=== PATIENT | female | born 2000 | race Two or more races ===

== ENCOUNTER 2024-04-20 09:09 | Emergency (ER) | payer MEDICAID, SELFPAY ==
[2024-04-20] VITALS (8 sets, daily range): BP systolic 62–134; BP diastolic 39–95; PULSE 48–101; RESP 15–22; TEMP 36.7–37.1; O2SAT 97–99; BMI 36.8
--- NOTE | 2024-04-20 09:31 | PC.NURSE ---
Ashok Caceres [facility] Officer here talking with pt. and pt.'s spouse.
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
--- NOTE | 2024-04-20 10:32 | EKG_ITS ---
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
--- NOTE | 2024-04-20 10:59 | PC.NURSE ---
@6993- Dr. Duong made aware that pt was hypotensive and bradycardic around 1000 initially but VS now stable. Per Dr. Duong, since pt's VS stable at this time, no new orders.
[2024-04-20 11:11] LABS: Basophils # (Auto) 0.1 Thou/mm3 (0.0-0.2); Basophils % (Auto) 0 % (0-2.5); Eosinophils # (Auto) 0.1 Thou/mm3 (0.0-0.5); Eosinophils % (Auto) 1 % (0-10); Hematocrit 39.7 % (36.0-46.0); Hemoglobin 13.4 g/dL (12.0-16.0); Immature Granulocytes % (Auto) 1 % (0-0); Immature Granulocytes Auto 0.14 Thou/mm3 (0.00-0.00); Lymphocytes # (Auto) 2.8 Thou/mm3 (1.0-4.8); Lymphocytes % (Auto) 15 % (10-50); Mean Corpuscular HGB Conc 33.8 g/dl (31.0-37.0); Mean Corpuscular Hemoglobin 27.9 pg (25.0-35.0); Mean Corpuscular Volume 83 fL (80-100); Monocytes % (Auto) 6 % (0-12); Neutrophils # (Auto) 13.9 Thou/mm3 (1.8-7.7); Neutrophils % (Auto) 77 % (37-80); Nucleated Red Blood Cell % 0 /100 WBC (0); Platelet Count 240 Thou/mm3 (140-440); RDW Standard Deviation 37.6 fL (36.4-46.3); White Blood Count 18.1 Thou/mm3 (3.6-11.0)
[2024-04-20 11:26] LABS: Partial Thromboplastin Time 23.8 Seconds (22.0-36.0); Prothrombin Time 11.2 Seconds (9.0-12.2)
[2024-04-20 11:34] LABS: Alanine Aminotransferase 35 U/L (10-49); Albumin, Serum 4.4 gm/dL (3.5-5.0); Albumin/Globulin Ratio 1.6 (1.2-2.2); Alcohol, Blood Medical < 3.0 mg/dL (0-10.0); Alkaline Phosphatase 80 U/L (46-116); Anion Gap 7 (7-16); Aspartate Amino Transferase 25 U/L (0-34); BUN/Creatinine Ratio 25 Ratio (12-20); Bilirubin,Total 0.5 mg/dL (0.3-1.2); Blood Urea Nitrogen 15 mg/dL (9-23); Calcium 9.2 mg/dL (8.3-10.6); Calcium (Corrected) 9.2 mg/dL (8.5-10.1); Carbon Dioxide 23.1 mMol/L (20.0-31.0); Chloride 107 mMol/L (98-107); Creatinine (Component) 0.6 mg/dL (0.6-1.3); Estimated Creatinine Clearance 146.2 mL/min (>60); Globulin 2.7 gm/dL (2.3-3.5); Glucose 171 mg/dL (74-106); Osmolality,Calculated 278 (275-295); Potassium 3.2 mMol/L (3.4-5.1); Sodium 137 mMol/L (136-145); Total Protein 7.1 gm/dL (5.7-8.2); Troponin I < 0.002 ng/mL (0.0-0.045); eGFR > 60 See Note
[2024-04-20 12:01] LABS: HCG Qualitative,Urine Negative
[2024-04-20] MEDS: IBUPROFEN TAB 600 MG TABLET PO (14:09)
[2024-04-20] MEDS: ACETAMINOPHEN 325 MG TABLET 650 MG PO (14:09)
--- NOTE | 2024-04-20 14:35 | PC.NURSE ---
Tank Assembler used for pt's discharge instructions. Tank Assembler name: Sheila ID#: [id number]
== END 2024-04-20 14:42 | disposition home or self-care (01) ==
PROVIDERS: Emergency Provider Emergency Medicine
DX: S30.1XXA Contusion of abdominal wall, initial encounter (principal); S10.83XA Contusion of other specified part of neck, initial encounter; S10.81XA Abrasion of other specified part of neck, initial encounter; S19.9XXA Unspecified injury of neck, initial encounter; S29.9XXA Unspecified injury of thorax, initial encounter; V49.9XXA Car occupant (driver) (passenger) injured in unspecified traffic accident, initial encounter
CPT/HCPCS: 36415; 70450; 71045; 71260; 72125; 74177; 80053; 80320; 81025; 84484; 85025; 85610; 85730; 86850; 86900; 86901; 93005; 99285; A4649; Q9967; A9270; G0480

== ENCOUNTER 2024-12-11 13:00 | Outpatient (AMB) | payer MEDICAID, SELFPAY ==
[2024-12-11 13:31] VITALS: BP 119/79; PULSE 94; RESP 17; TEMP 36.9; O2SAT 96; BMI 41.5
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
== END 2024-12-11 13:51 | disposition home or self-care (01) ==
LOC: HODSOBC 13:00
PROVIDERS: PCP Advanced Practice Midwife; Referring Provider Advanced Practice Midwife; Supervising Provider Advanced Practice Midwife; Visit Provider Advanced Practice Midwife
DX: O09.891 Supervision of other high risk pregnancies, first trimester (principal); O21.9 Vomiting of pregnancy, unspecified; Z3A.12 12 weeks gestation of pregnancy
CPT/HCPCS: 99214; G0463

== ENCOUNTER 2025-01-08 15:15 | Outpatient (AMB) | payer MEDICAID, SELFPAY ==
[2025-01-08 15:23] VITALS: BP 121/83; PULSE 98; RESP 18; TEMP 36.8; O2SAT 97; BMI 42.0
--- NOTE | 2025-01-08 15:23 | OBCLNT_ITS ---
Vital Signs 01/08/25 15:23 Height 1.47 m Height Method Stated Weight 90.832 kg Weight Measurement Method Standing Scale BMI 42.0 BP 121/83 Blood Pressure Source Automatic Cuff Blood Pressure Location Left Upper Arm Position Sitting Respiration 18 Pulse 98 Pulse Source Monitor Temp 98.2 F Temp Source Oral Pulse Oximetry (%) 97 Oxygen Delivery Method Room Air Allergies/Home Meds Allergies & Medications Allergies iron Allergy (Verified 01/08/25 15:24) swelling Medication Reconciliation ondansetron HCl 4 mg tablet 4 mg PO Q8H PRN nausea and vomiting #30 tabs 12/11/24 [Rx Confirmed 01/08/25] vitamin-ferrous fumarate 28 mg iron-folic acid 800 mcg tablet ( Vitamins with Minerals) 1 tab PO QDAY #60 tabs 12/11/24 [Rx Confirmed 01/08/25] blood sugar diagnostic (Blood Glucose Test strips) #10 ea 01/01/25 [Rx Confirmed 01/08/25] blood sugar diagnostic (Blood Glucose Test strips) #50 ea 01/01/25 [Rx Confirmed 01/08/25] blood-glucose meter #1 ea 01/01/25 [Rx Confirmed 01/08/25] lancets #100 ea 01/01/25 [Rx Confirmed 01/08/25] lancets #100 ea 01/01/25 [Rx Confirmed 01/08/25] Intake Visit Data Collection New Patient or Established: Established Patient (seen at [facility] within 3 years) Reason for Visit:: CARE Seen by Clinical Staff ONLY (RN/MA): No Android Ios Developer Required: No Do You Feel Safe at Home: Yes Authorities Contacted: N/A PCP or OBGYN visit in last 3 months: Yes Hx Now: Yes Are you currently on any form of Control: No Pain Present Currently: No Pain Scale Used: Peñaloza-Nguyen/Numerical Pain scale:: 0 Smoking Status Smoking Status: Never smoker Questionnaires Covid-19 Vaccine Questionnaire Has patient been vacinated for Covid-19 Have you been vacinated for Covid-19: Yes PHQ-9 PHQ-2 Over the last 2 weeks, how often have you been bothered by any of the following problems? 1. Little interest or pleasure in doing things: not at all 2. Feeling down, depressed, or hopeless: not at all Total score: 0 PHQ-9 3. Trouble falling or staying asleep, or sleeping too much: Not at all 4. Feeling tired or having little energy: Not at all 5. Poor appetite or overeating: Not at all 6. Feeling bad about yourself - or that you are a failure or have let yourself or your family down: Not at all 7. Trouble concentrating on things, such as reading the newspaper or watching television: Not at all 8. Moving or speaking so slowly that other people could have noticed? - Or the opposite - being so fidgety or restless that you have been moving around a lot more than usual: not at all 9. Thoughts that you would be better off or of hurting yourself in some way: Not at all Total score: 0 Source: Developed by Drs. Damaso Faye, Kiki eSlf, Vince Byrne and colleagues, with an educational arturo from [employer]. 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: Past Medical History Past Medical History: No Hx Neurological Disorders, No Hx Breast Cancer, No Hx Cardiac Disorders, No Hx Cancer, Yes Hx Blood Disorders, Yes Hx Anemia, No Hx Gastrointestinal Disorders, No Hx Renal Disease, No Hx Diabetes Mellitus Type 1 and No Hx Diabetes Mellitus Type 2 Care OB Visit Log OB Flowsheet Initial Weight: Not Recorded Date -?-?-?-?-?-?-?-?-?-?-?-?- EGA Weight BP Alb Glu CTX Pres Fundal ht FHR Mov Dilation Station Ef facement Hx Notes Visit Note 12/11/24 -?-?-?-?-?-?-?-?-?-?-?-?- 12w 1d 90.265 kg 119/79 absent unknown 12 145 absent 24-year-old 3 para 2 here for OBI. Patient's last period September 17, 2024. This gives a due date June 2025. Patient is happy about the . Her first 2 pregnancies were normal births but she had diabetes with her last . Diet only. Denies bleeding. Denies bleeding leaking. Denies any contractions. Patient does complain of nausea and vomiting Zofran 0.4 every 8 hours I gave prescription 60. Discussed comfort measures for nausea and vomiting. Continue vitamins. I ordered an ultrasound here at [facility]. Patient is having trouble with transportation and wants to go there. OB panel and NIPT and 1 hour GTT for tomorrow at the lab and return in 4 weeks OB check 01/08/25 -?-?-?-?-?-?-?-?-?-?-?-?- 16w 1d 90.832 kg 121/83 absent unknown 15 140 active Reports slight movement. Denies cramps. Denies bleeding. Denies leaking. Patient did not hop picker her glucometer and equipment yet. Previous GDM last . Patient agrees to go to maternal- medicine appointment in [place]. Advised patient to hop picker her glucometer and supplies from the pharmacy. I discussed blood glucose monitoring 4 times a day. Discussed GDM diet. Encourage patient to walk 40 minutes a day. And I asked patient to follow-up with our educator. Kayode nettles schedule patient at Dr. Vallejo for anatomy scan. Return in 4 weeks OB check Advised patient to hop picker h er glucometer and supplies from the pharmacy. I discussed blood glucose monitoring 4 times a day. Discussed GDM diet. Encourage patient to walk 40 minutes a day. And I asked patient to follow-up with our educator. Will schedule patient at Dr. Vallejo for anatomy scan. Return in 4 weeks OB check. AFP HERNANDO Calculator Estimated Delivery Date Method Current WG Current Estimate 06/24/25 LMP (Certain) 16w 1d Notes Visit Date: 01/08/25 Last Updated by: Eleonora Corea CNM 1 hr gtt: 225, O+,abs-, rpr::nr, rub imm, hbsag-,HIV-,HC-, GC/CT-, NIPT-,, SMA/CF- GDM Visit Date: 12/11/24 Last Updated by: Eleonora Corea CNM 24 yo . lmp 09/17/24. EDC 06/24/25 Office Procedures OB Clinic LOC & Office Proc's Nursing/Assessment Patient Status: Established Patient OB Clinic Nursing Assessment: Medication Reconciliation, Update PMH in EMR and Vital Signs OB Clinic Coordination of Care: Complex Care and Chronic Disease 1-5, Consent,records obtained, informed consent, Education Simp Pt/Fam, Lab and Imaging orders, Results/Orders obtained and Staff clarify orders Special Needs: Heart tones Established Patient Charge Established Patient Point Assignment: 135 Established Patient Point Charge: EP Level 4 (120-155) Assessment & Plan Diagnosis / Problem List (1) Encounter for supervision of high risk in second trimester, antepartum: Status: Acute (2) Diet controlled White classification A1 gestational diabetes mellitus (GDM): Status: Acute Plan Discussed GDM diet discussed glucometer use and picking up that and her equipment at pharmacy. And then patient to test 4 times a day. Reviewed GDM diet and parameters with patient encouraged to walk 40 minutes a day. Schedule anatomy scan with Dr. Fernandes's office. And return in 4 weeks OB. aFP Additional Plan Follow Up: 4 Weeks (obc)
== END 2025-01-08 15:44 | disposition home or self-care (01) ==
LOC: HODSOBC 15:15
PROVIDERS: PCP Advanced Practice Midwife; Referring Provider Advanced Practice Midwife; Supervising Provider Advanced Practice Midwife; Visit Provider Advanced Practice Midwife
DX: O09.892 Supervision of other high risk pregnancies, second trimester (principal); O24.410 Gestational diabetes mellitus in pregnancy, diet controlled; Z3A.16 16 weeks gestation of pregnancy; Z88.8 Allergy status to other drugs, medicaments and biological substances
CPT/HCPCS: 99214; G0463

== ENCOUNTER 2025-02-28 13:00 | Outpatient (AMB) | payer MEDICAID, SELFPAY ==
--- NOTE | 2025-02-28 13:09 | OBCLNT_ITS ---
Vital Signs 02/28/25 13:10 Height 1.47 m Height Method Stated Weight 88.621 kg Weight Measurement Method Standing Scale BMI 41.0 BP 110/71 Blood Pressure Source Automatic Cuff Blood Pressure Location Left Upper Arm Position Sitting Respiration 18 Pulse 90 Pulse Source Monitor Temp 97.2 F Temp Source Oral Pulse Oximetry (%) 98 Oxygen Delivery Method Room Air Allergies/Home Meds Allergies & Medications Allergies iron Allergy (Verified 02/28/25 13:10) swelling Medication Reconciliation ondansetron HCl 4 mg tablet 4 mg PO Q8H PRN nausea and vomiting #30 tabs 12/11/24 [Rx Confirmed 02/28/25] vitamin-ferrous fumarate 28 mg iron-folic acid 800 mcg tablet ( Vitamins with Minerals) 1 tab PO QDAY #60 tabs 12/11/24 [Rx Confirmed 02/28/25] blood sugar diagnostic (Blood Glucose Test strips) #10 ea 01/01/25 [Rx Confirmed 02/28/25] blood sugar diagnostic (Blood Glucose Test strips) #50 ea 01/01/25 [Rx Confirmed 02/28/25] blood-glucose meter #1 ea 01/01/25 [Rx Confirmed 02/28/25] lancets #100 ea 01/01/25 [Rx Confirmed 02/28/25] lancets #100 ea 01/01/25 [Rx Confirmed 02/28/25] Intake Visit Data Collection New Patient or Established: Established Patient (seen at [facility] within 3 years) Reason for Visit:: OBC Seen by Clinical Staff ONLY (RN/MA): No General Internal Medicine Physician Required: No Do You Feel Safe at Home: Yes Authorities Contacted: N/A PCP or OBGYN visit in last 3 months: Yes Date of Last PCP or OBGYN visit: 01/08/25 Hx Now: Yes Are you currently on any form of Control: No Pain Present Currently: No Pain Scale Used: Peñaloza-Gnuyen/Numerical Pain scale:: 0 Smoking Status Smoking Status: Never smoker Questionnaires Covid-19 Vaccine Questionnaire Has patient been vacinated for Covid-19 Have you been vacinated for Covid-19: Yes PHQ-9 PHQ-2 Over the last 2 weeks, how often have you been bothered by any of the following problems? 1. Little interest or pleasure in doing things: not at all 2. Feeling down, depressed, or hopeless: not at all Total score: 0 PHQ-9 3. Trouble falling or staying asleep, or sleeping too much: Not at all 4. Feeling tired or having little energy: Not at all 5. Poor appetite or overeating: Not at all 6. Feeling bad about yourself - or that you are a failure or have let yourself or your family down: Not at all 7. Trouble concentrating on things, such as reading the newspaper or watching television: Not at all 8. Moving or speaking so slowly that other people could have noticed? - Or the opposite - being so fidgety or restless that you have been moving around a lot more than usual: not at all 9. Thoughts that you would be better off or of hurting yourself in some way: Not at all Total score: 0 If you checked off any problems, how difficult have these problems made it for you to do your work, take care of things at home, or get along with other people?: not difficult at all Source: Developed by Drs. Damaso Faye, Kiki Self, Vince Byrne and colleagues, with an educational arturo from [employer]. 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 Patient's last period September 17, 2024. This gives a due date June 2025. Patient is happy about the . Her first 2 pregnancies were normal births but she had diabetes with her last . Diet only. Denies bleeding. Denies bleeding leaking. Denies any contractions. Patient does complain of nausea and vomiting Zofran 0.4 every 8 hours I gave prescription 60. Discussed comfort measures for nausea and vomiting. Continue vitamins. I ordered an ultrasound here at [facility]. Patient is having trouble with transportation and wants to go there. OB panel and NIPT and 1 hour GTT for tomorrow at the lab and return in 4 weeks OB check 01/08/25 -?-?-?-?-?-?-?-?-?-?-?-?- 16w 1d 90.832 kg 121/83 absent unknown 15 140 active Reports slight movement. Denies cramps. Denies bleeding. Denies leaking. Patient did not pick up worker her glucometer and equipment yet. Previous GDM last . Patient agrees to go to maternal- medicine appointment in [place]. Advised patient to pick up worker her glucometer and supplies from the pharmacy. I discussed blood glucose monitoring 4 times a day. Discussed GDM diet. Encourage patient to walk 40 minutes a day. And I asked patient to follow-up with our educator. Will schedule patient at Dr. Vallejo for anatomy scan. Return in 4 weeks OB check Advised patient to pick up worker h er glucometer and supplies from the pharmacy. I discussed blood glucose monitoring 4 times a day. Discussed GDM diet. Encourage patient to walk 40 minutes a day. And I asked patient to follow-up with our educator. Will schedule patient at Dr. Vallejo for anatomy scan. Return in 4 weeks OB check. AFP 02/28/25 -?-?-?-?-?-?-?-?-?-?-?-?- 23w 3d 88.621 kg 110/71 absent unknown 23 145 active Reports good movement. Denies leaking, bleeding, contractions. Patient has a follow-up [facility] April 10. Sugars for her fasting before breakfast were 90% above goal. After breakfast lunch and dinner. Patient had poor compliance as well about 80% were at goal. Schedule with O B for medical management of GDM. I discussed with patient the need to walk 40 minutes a day and 10 minutes after each meal. And I reviewed diet and compliance with patient as well return in 2 weeks OB. Keep follow-up appointment April 10 HERNANDO Calculator Estimated Delivery Date Method Current WG Current Estimate 06/24/25 LMP (Certain) 23w 3d Other Estimates 06/26/25 Ultrasound #1 23w 1d 06/24/25 Ultrasound #2 23w 3d 06/24/25 Manual 23w 3d Final HERNANDO: . EFW:20% on 02/20 Notes Visit Date: 01/08/25 Last Updated by: Eleonora Corea CNM 1 hr gtt: 225, O+,abs-, rpr::nr, rub imm, hbsag-,HIV-,HC-, GC/CT-, NIPT-,, SMA/CF- GDM Visit Date: 12/11/24 Last Updated by: Eleonora Corea CNM 24 yo . lmp 09/17/24. EDC 06/24/25 Office Procedures OBC Clinic LOC & Office Proc's Nursing/Assessment Patient Status: Established Patient OB Clinic Nursing Assessment: Medication Reconciliation, Update PMH in EMR and Vital Signs OB Clinic Coordination of Care: Consent,records obtained, informed consent, Education Simp Pt/Fam, Lab and Imaging orders, Results/Orders obtained and Staff clarify orders Special Needs: Heart tones Established Patient Charge Established Patient Point Assignment: 110 Established Patient Point Charge: EP Level 3 (80-115) Assessment & Plan Diagnosis / Problem List (1) Diet controlled White classification A1 gestational diabetes mellitus (GDM): Status: Acute (2) Encounter for supervision of high risk in second trimester, antepartum: Status: Acute Plan Schedule with OB for medical management of GDM. Keep appointment with maternal- medicine for follow-up growth April 10. Encouraged patient to walk 40 minutes a day and after meals. Increase fluids. We reviewed diet as well. Additional Plan Follow Up: 2 Weeks (OBC/gdm)
[2025-02-28 13:10] VITALS: BP 110/71; PULSE 90; RESP 18; TEMP 36.2; O2SAT 98; BMI 41.0
== END 2025-02-28 14:37 | disposition home or self-care (01) ==
LOC: HODSOBC 13:00
PROVIDERS: Supervising Provider Advanced Practice Midwife; Visit Provider Advanced Practice Midwife
DX: O09.892 Supervision of other high risk pregnancies, second trimester (principal); O24.410 Gestational diabetes mellitus in pregnancy, diet controlled; Z3A.23 23 weeks gestation of pregnancy
CPT/HCPCS: 99213; G0463

== ENCOUNTER 2025-03-16 10:33 | Outpatient (AMB) | payer MEDICAID, SELFPAY ==
--- NOTE | 2025-03-16 10:41 | OBCLNT_ITS ---
Vital Signs 03/16/25 10:42 Height 1.47 m Height Method Stated Weight 87.146 kg Weight Measurement Method Standing Scale BMI 40.3 BP 114/76 Blood Pressure Source Automatic Cuff Blood Pressure Location Left Upper Arm Position Standing Respiration 18 Pulse 79 Pulse Source Monitor Temp 97.2 F Temp Source Oral Pulse Oximetry (%) 99 Oxygen Delivery Method Room Air Allergies/Home Meds Allergies & Medications Allergies iron Allergy (Verified 04/27/25 11:14) swelling Medication Reconciliation ondansetron HCl 4 mg tablet 4 mg PO Q8H PRN nausea and vomiting #30 tabs 12/11/24 [Rx Confirmed 04/27/25] vitamin-ferrous fumarate 28 mg iron-folic acid 800 mcg tablet ( Vitamins with Minerals) 1 tab PO QDAY #60 tabs 12/11/24 [Rx Confirmed 04/27/25] blood-glucose meter #1 ea 01/01/25 [Rx Confirmed 04/27/25] metformin 500 mg tablet 500 mg PO QDAY 90 days #90 tabs 03/28/25 [Rx Confirmed 04/27/25] blood sugar diagnostic (Blood Glucose Test strips) #100 ea 04/11/25 [Rx Confirmed 04/27/25] lancets 21 gauge #100 ea 04/11/25 [Rx Confirmed 04/27/25] Intake Visit Data Collection New Patient or Established: Established Patient (seen at [facility] within 3 years) Reason for Visit:: OBC Seen by Clinical Staff ONLY (RN/MA): No 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 Required: No Do You Feel Safe at Home: Yes Authorities Contacted: N/A PCP or OBGYN visit in last 3 months: Yes Date of Last PCP or OBGYN visit: 02/28/25 Hx Now: Yes Are you currently on any form of Control: No Pain Present Currently: No Pain Scale Used: Peñaloza-Nguyen/Numerical Pain scale:: 0 Smoking Status Smoking Status: Never smoker Immunizations Flu Vaccine in the Last 12 Months: No Flu Vaccine Exclusion Criteria: No Exclusion Criteria Questionnaires Covid-19 Vaccine Questionnaire Has patient been vacinated for Covid-19 Have you been vacinated for Covid-19: No PHQ-9 PHQ-2 Over the last 2 weeks, how often have you been bothered by any of the following problems? 1. Little interest or pleasure in doing things: not at all 2. Feeling down, depressed, or hopeless: not at all Total score: 0 PHQ-9 3. Trouble falling or staying asleep, or sleeping too much: Not at all 4. Feeling tired or having little energy: Not at all 5. Poor appetite or overeating: Not at all 6. Feeling bad about yourself - or that you are a failure or have let yourself or your family down: Not at all 7. Trouble concentrating on things, such as reading the newspaper or watching television: Not at all 8. Moving or speaking so slowly that other people could have noticed? - Or the opposite - being so fidgety or restless that you have been moving around a lot more than usual: not at all 9. Thoughts that you would be better off or of hurting yourself in some way: Not at all Total score: 0 If you checked off any problems, how difficult have these problems made it for you to do your work, take care of things at home, or get along with other people?: not difficult at all Source: Developed by Drs. Damaso Faye, Kiki Self, Vince Byrne and colleagues, with an educational arturo from [employer]. 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 Patient's last period September 17, 2024. This gives a due date June 2025. Patient is happy about the . Her first 2 pregnancies were normal births but she had diabetes with her last . Diet only. Denies bleeding. Denies bleeding leaking. Denies any contractions. Patient does complain of nausea and vomiting Zofran 0.4 every 8 hours I gave prescription 60. Discussed comfort measures for nausea and vomiting. Continue vitamins. I ordered an ultrasound here at [facility]. Patient is having trouble with transportation and wants to go there. OB panel and NIPT and 1 hour GTT for tomorrow at the lab and return in 4 weeks OB check 01/08/25 -?-?-?-?-?-?-?-?-?-?-?-?- 16w 1d 90.832 kg 121/83 absent unknown 15 140 active Reports slight movement. Denies cramps. Denies bleeding. Denies leaking. Patient did not sweet pickle maker her glucometer and equipment yet. Previous GDM last . Patient agrees to go to maternal- medicine appointment in [place]. Advised patient to sweet pickle maker her glucometer and supplies from the pharmacy. I discussed blood glucose monitoring 4 times a day. Discussed GDM diet. Encourage patient to walk 40 minutes a day. And I asked patient to follow-up with our educator. Will schedule patient at Dr. Vallejo for anatomy scan. Return in 4 weeks OB check Advised patient to sweet pickle maker h er glucometer and supplies from the pharmacy. I discussed blood glucose monitoring 4 times a day. Discussed GDM diet. Encourage patient to walk 40 minutes a day. And I asked patient to follow-up with our educator. Will schedule patient at Dr. Vallejo for anatomy scan. Return in 4 weeks OB check. AFP 02/28/25 -?-?-?-?-?-?-?-?-?-?-?-?- 23w 3d 88.621 kg 110/71 absent unknown 23 145 active Reports good movement. Denies leaking, bleeding, contractions. Patient has a follow-up M April 10. Sugars for her fasting before breakfast were 90% above goal. After breakfast lunch and dinner. Patient had poor compliance as well about 80% were at goal. Schedule with O B for medical management of GDM. I discussed with patient the need to walk 40 minutes a day and 10 minutes after each meal. And I reviewed diet and compliance with patient as well return in 2 weeks OB. Keep follow-up appointment April 10 03/16/25 -?-?-?-?-?-?-?-?-?-?-?-?- 25w 5d 87.146 kg 114/76 absent unknown 26 150 active - She has A1 diet- controlled diabetes and reports difficulty obtaining her prescription for blood glucose monitoring supplies. - States she went to the pharmacy but they indicated no prescription was available. - Has not been checking her blood suga rs due to lack of supplies. - Patient reports movement. - She was previously seeing a different provider. - Send new prescription for blood glucose monitoring supplies to [facility] pharmacy today - Patient to return with blood sugar log s - Follow up appointment in 2 weeks - Verify [facility] 03/28/25 -?-?-?-?-?-?-?-?-?-?-?-?- w 3d 89.074 kg 105/70 absent unknown 27 155 active - She has been checking her blood sugar levels at home with some initial difficulty obtaining testing supplies from the pharmacy. - Her glucose numbers were initially marcelo vated when she started monitoring but have been improving and trending toward normal levels. - She reports making some dietary modifi cations, eating less than before. - Notes that her glucose numbers can b e variable, sometimes going up and down unpredictably. - She has experienced some glucose readi ngs over 150 mg/dL which she acknowledges are elevated. - Her morning glucose readings and post- meal readings have been monitored with mixed results. - She reports adherence to glucose monit oring though notes some variability in her checking routine. 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 - Patient reports checking her blood sug ars as instructed. - Fasting glucose levels are all below 95 mg/dL - Post-meal glucose readings include: 140, 118, 105, 126, 119, 118 mg/dL - She confirms adherence to metformin th erapy since initiation. 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 - Continue metformin until delivery - Continue glucose monitoring with curre nt regimen - [facility] to [facility] - Pharmacy follow-up needed to obtain gl ucose test strips (one-year supply ordered) - Return visit scheduled in 2 weeks - Ultrasound room appointment scheduled 04/27/25 -?-?-?-?-?-?-?-?-?-?-?-?- 31w 5d 87.6 kg 108/74 absent unknown 32 155 active - She reports checking her blood sugars as directed and brought her glucose monitoring numbers to the visit. - Patient states the baby is active. - She is adhering to her glucose monitor ing regimen. - Patient reports receiving a call from the hospital regarding monitoring appoi ntments but had not yet scheduled the additional monitoring visit at the time of this appointment. - Continue cur rent glucose monitoring regimen - Patient to receive glucose monitoring supplies (needles and glucose plug) - Weekly monitoring at [facility] due to gestational diabetes - Follow-up appointment in 2 weeks - Patient to await call from hospital to schedule weekly monitoring appointments HERNANDO Calculator Estimated Delivery Date Method Current WG Current Estimate 06/24/25 LMP (Certain) 33w 4d Other Estimates 06/26/25 Ultrasound #1 33w 2d 06/24/25 Ultrasound #2 33w 4d 06/24/25 Manual 33w 4d Final HERNANDO: . EFW:20% on 02/20 Notes Visit Date: 01/08/25 Last Updated by: Eleonora Corea CNM 1 hr gtt: 225, O+,abs-, rpr::nr, rub imm, hbsag-,HIV-,HC-, GC/CT-, NIPT-,, SMA/CF- GDM Visit Date: 12/11/24 Last Updated by: Eleonora Corea CNM 24 yo . lmp 09/17/24. EDC 06/24/25 Office Procedures OBC Clinic LOC & Office Proc's Nursing/Assessment Patient Status: Established Patient OB Clinic Nursing Assessment: Medication Reconciliation, Update PMH in EMR and Vital Signs OB Clinic Coordination of Care: Consent,records obtained, informed consent, Education Simp Pt/Fam, Lab and Imaging orders, Results/Orders obtained and Staff clarify orders Special Needs: Heart tones Established Patient Charge Established Patient Point Assignment: 110 Established Patient Point Charge: EP Level 3 (80-115) Assessment & Plan Diagnosis / Problem List (1) Gestational diabetes mellitus in , diet controlled: Status: Acute Plan Problem List - Type 1 diabetes mellitus - Assessment 25-week 5-day patient with A1 diet-controlled gestational diabetes presenting for routine care. heart rate is 145 bpm, which is within normal limits. Patient reports movement. There is an issue with diabetes medication prescription availability at the pharmacy that requires resolution for continued glucose monitoring and management. Plan - Send new prescription for blood glucose monitoring supplies to [facility] pharmacy today - Patient to return with blood sugar logs - Follow up appointment in 2 weeks - Verify prescription availability at pharmacy 1. Progress Reviewed gestational age (25 weeks 5 days), growth, and heart rate (145 bpm, normal). Planned frequent visits (every 2 weeks until 36 weeks, then weekly). 2. Instructed patient to monitor movements and report decreases immediately. 3. Testing Counseled on routine third-trimester labs per guidelines. Discussed potential need for ultrasound or monitoring based on risk factors. 4. Preeclampsia Precaution Educated on preeclampsia signs: severe headache, vision changes, right upper quadrant pain, sudden swelling. Advised urgent reporting of symptoms and discussed blood pressure monitoring if high risk. 5. Labor Precautions Reviewed labor signs: regular contractions, pelvic pressure, back pain, bleeding, or fluid leakage. Instructed to seek immediate care for these symptoms. 6. Lifestyle and Delivery Preparation Reinforced vitamins, nutrition, and safe activity. Discussed plan, pain management, and . Advised on labor preparation (e.g., hospital bag) and expectations. 7. Psychosocial Support Assessed emotional well-being and offered resources for mental health or parenting support.
[2025-03-16 10:42] VITALS: BP 114/76; PULSE 79; RESP 18; TEMP 36.2; O2SAT 99; BMI 40.3
== END 2025-03-16 11:21 | disposition home or self-care (01) ==
LOC: HODSOBC 10:33
PROVIDERS: Supervising Provider Obstetrics & Gynecology; Visit Provider Obstetrics & Gynecology
DX: O09.892 Supervision of other high risk pregnancies, second trimester (principal); O24.410 Gestational diabetes mellitus in pregnancy, diet controlled; Z3A.25 25 weeks gestation of pregnancy; Z88.8 Allergy status to other drugs, medicaments and biological substances
CPT/HCPCS: 99213; G0463

== ENCOUNTER 2025-03-28 10:54 | Outpatient (AMB) | payer MEDICAID, SELFPAY ==
--- NOTE | 2025-03-28 10:59 | OBCLNT_ITS ---
Vital Signs 03/28/25 11:00 Height 1.47 m Height Method Stated Weight 89.074 kg Weight Measurement Method Standing Scale BMI 41.2 BP 105/70 Blood Pressure Source Automatic Cuff Blood Pressure Location Right Upper Arm Position Sitting Respiration 18 Pulse 86 Pulse Source Monitor Temp 97.7 F Temp Source Temporal Artery Scan Pulse Oximetry (%) 97 Oxygen Delivery Method Room Air Allergies/Home Meds Allergies & Medications Allergies iron Allergy (Verified 03/28/25 11:00) swelling Medication Reconciliation ondansetron HCl 4 mg tablet 4 mg PO Q8H PRN nausea and vomiting #30 tabs 12/11/24 [Rx Confirmed 03/28/25] vitamin-ferrous fumarate 28 mg iron-folic acid 800 mcg tablet ( Vitamins with Minerals) 1 tab PO QDAY #60 tabs 12/11/24 [Rx Confirmed 03/28/25] blood-glucose meter #1 ea 01/01/25 [Rx Confirmed 03/28/25] blood sugar diagnostic (Blood Glucose Test strips) #100 ea 03/16/25 [Rx Confirmed 03/28/25] lancets 21 gauge #100 ea 03/28/25 [Rx] metformin 500 mg tablet 500 mg PO QDAY 90 days #90 tabs 03/28/25 [Rx] Intake Visit Data Collection New Patient or Established: Established Patient (seen at [facility] within 3 years) Reason for Visit:: OBC /GDM Seen by Clinical Staff ONLY (RN/MA): No Supervisor Backfilling Required: Yes Supervisor 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/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 LAW Do You Feel Safe at Home: Yes Authorities Contacted: N/A PCP or OBGYN visit in last 3 months: Yes Date of Last PCP or OBGYN visit: 03/16/25 Hx Now: Yes Are you currently on any form of Control: No Pain Present Currently: No Pain Scale Used: Peñaloza-Nguyen/Numerical Pain scale:: 0 Smoking Status Smoking Status: Never smoker Immunizations Flu Vaccine in the Last 12 Months: No Flu Vaccine Exclusion Criteria: No Exclusion Criteria Questionnaires Covid-19 Vaccine Questionnaire Has patient been vacinated for Covid-19 Have you been vacinated for Covid-19: No PHQ-9 PHQ-2 Over the last 2 weeks, how often have you been bothered by any of the following problems? 1. Little interest or pleasure in doing things: not at all 2. Feeling down, depressed, or hopeless: not at all Total score: 0 PHQ-9 3. Trouble falling or staying asleep, or sleeping too much: Not at all 4. Feeling tired or having little energy: Not at all 5. Poor appetite or overeating: Not at all 6. Feeling bad about yourself - or that you are a failure or have let yourself or your family down: Not at all 7. Trouble concentrating on things, such as reading the newspaper or watching television: Not at all 8. Moving or speaking so slowly that other people could have noticed? - Or the opposite - being so fidgety or restless that you have been moving around a lot more than usual: not at all 9. Thoughts that you would be better off or of hurting yourself in some way: Not at all Total score: 0 If you checked off any problems, how difficult have these problems made it for you to do your work, take care of things at home, or get along with other people?: not difficult at all Source: Developed by Drs. Damaso Faye, Kiki Self, Vince Byrne and colleagues, with an educational arturo from [employer] 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 Patient's last period September 17, 2024. This gives a due date June 2025. Patient is happy about the . Her first 2 pregnancies were normal births but she had diabetes with her last . Diet only. Denies bleeding. Denies bleeding leaking. Denies any contractions. Patient does complain of nausea and vomiting Zofran 0.4 every 8 hours I gave prescription 60. Discussed comfort measures for nausea and vomiting. Continue vitamins. I ordered an ultrasound here at [facility]. Patient is having trouble with transportation and wants to go there. OB panel and NIPT and 1 hour GTT for tomorrow at the lab and return in 4 weeks OB check 01/08/25 -?-?-?-?-?-?-?-?-?-?-?-?- 16w 1d 90.832 kg 121/83 absent unknown 15 140 active Reports slight movement. Denies cramps. Denies bleeding. Denies leaking. Patient did not pharmacy picking tech her glucometer and equipment yet. Previous GDM last . Patient agrees to go to maternal- medicine appointment in [place]. Advised patient to pharmacy picking tech her glucometer and supplies from the pharmacy. I discussed blood glucose monitoring 4 times a day. Discussed GDM diet. Encourage patient to walk 40 minutes a day. And I asked patient to follow-up with our educator. Will schedule patient at Dr. Vallejo for anatomy scan. Return in 4 weeks OB check Advised patient to pharmacy picking tech h er glucometer and supplies from the pharmacy. I discussed blood glucose monitoring 4 times a day. Discussed GDM diet. Encourage patient to walk 40 minutes a day. And I asked patient to follow-up with our educator. Will schedule patient at Dr. Vallejo for anatomy scan. Return in 4 weeks OB check. AFP 02/28/25 -?-?-?-?-?-?-?-?-?-?-?-?- 23w 3d 88.621 kg 110/71 absent unknown 23 145 active Reports good movement. Denies leaking, bleeding, contractions. Patient has a follow-up MFM April 10. Sugars for her fasting before breakfast were 90% above goal. After breakfast lunch and dinner. Patient had poor compliance as well about 80% were at goal. Schedule with O B for medical management of GDM. I discussed with patient the need to walk 40 minutes a day and 10 minutes after each meal. And I reviewed diet and compliance with patient as well return in 2 weeks OB. Keep follow-up appointment April 10 03/28/25 -?-?-?-?-?-?-?-?-?-?-?-?- 27w 3d 89.074 kg 105/70 absent unknown 27 155 active - She has been checking her blood sugar levels at home with some initial difficulty obtaining testing supplies from the pharmacy. - Her glucose numbers were initially marcelo vated when she started monitoring but have been improving and trending toward normal levels. - She reports making some dietary modifi cations, eating less than before. - Notes that her glucose numbers can b e variable, sometimes going up and down unpredictably. - She has experienced some glucose readi ngs over 150 mg/dL which she acknowledges are elevated. - Her morning glucose readings and post- meal readings have been monitored with mixed results. - She reports adherence to glucose monit oring though notes some variability in her checking routine. 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 EFW:20% on 02/20 Notes Visit Date: 01/08/25 Last Updated by: Eleonora Corea CNM 1 hr gtt: 225, O+,abs-, rpr::nr, rub imm, hbsag-,HIV-,HC-, GC/CT-, NIPT-,, SMA/CF- GDM Visit Date: 12/11/24 Last Updated by: Eleonora Corea CNM 24 yo . lmp 09/17/24. EDC 06/24/25 Office Procedures OBC Clinic LOC & Office Proc's Nursing/Assessment Patient Status: Established Patient OB Clinic Nursing Assessment: Medication Reconciliation, Update PMH in EMR and Vital Signs OB Clinic Coordination of Care: Complex Care and Chronic Disease 1-5, Education Complex Pt/Fam, Consent,records obtained, informed consent, Results/Orders obtained and Staff clarify orders Special Needs: Heart tones Established Patient Charge Established Patient Point Assignment: 125 Established Patient Point Charge: EP Level 4 (120-155) Assessment & Plan Diagnosis / Problem List (1) Diet controlled White classification A1 gestational diabetes mellitus (GDM): Status: Acute (2) Encounter for supervision of high risk in second trimester, antepartum: Status: Acute Plan Problem List - Gestational diabetes mellitus - at 27 weeks and 3 days gestation Assessment 27-week 3-day patient with gestational diabetes mellitus presenting for care. Blood glucose monitoring reveals initially elevated readings that have shown improvement with dietary modifications, specifically reduced food intake. However, some glucose values remain elevated above target ranges, with fasting glucose readings exceeding the goal of less than 95 mg/dL and some post-meal readings spiking over 150 mg/dL, which is above the target of less than 130 mg/dL. Patient reports variability in glucose control despite dietary changes. 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 Progress Reviewed gestational age (27 weeks 3 days), growth, and heart rate. Planned frequent visits (every 2 weeks until 36 weeks, then weekly). 2. Instructed patient to monitor movements and report decreases immediately. 3. Testing Counseled on routine third-trimester labs per guidelines. Discussed potential need for ultrasound or monitoring based on risk factors. 4. Preeclampsia Precaution Educated on preeclampsia signs: severe headache, vision changes, right upper quadrant pain, sudden swelling. Advised urgent reporting of symptoms and discussed blood pressure monitoring if high risk. 5. Labor Precautions Reviewed labor signs: regular contractions, pelvic pressure, back pain, bleeding, or fluid leakage. Instructed to seek immediate care for these symptoms. 6. Lifestyle and Delivery Preparation Reinforced vitamins, nutrition, and safe activity. Discussed plan, pain management, and . Advised on labor preparation (e.g., hospital bag) and expectations. 7. Psychosocial Support Assessed emotional well-being and offered resources for mental health or parenting support.
[2025-03-28 11:00] VITALS: BP 105/70; PULSE 86; RESP 18; TEMP 36.5; O2SAT 97; BMI 41.2
== END 2025-03-28 11:19 | disposition home or self-care (01) ==
LOC: HODSOBC 10:54
PROVIDERS: Supervising Provider Obstetrics & Gynecology; Visit Provider Obstetrics & Gynecology
DX: O09.892 Supervision of other high risk pregnancies, second trimester (principal); O24.415 Gestational diabetes mellitus in pregnancy, controlled by oral hypoglycemic drugs; Z3A.27 27 weeks gestation of pregnancy; Z88.8 Allergy status to other drugs, medicaments and biological substances
CPT/HCPCS: 99214; G0463

== ENCOUNTER 2025-04-27 11:03 | Outpatient (AMB) | payer MEDICAID, SELFPAY ==
[2025-04-27 11:12] VITALS: BP 108/74; PULSE 96; RESP 18; TEMP 36.4; O2SAT 97; BMI 40.5
--- NOTE | 2025-04-27 11:12 | OBCLNT_ITS ---
Vital Signs 04/27/25 11:12 Height 1.47 m Height Method Stated Weight 87.6 kg Weight Measurement Method Standing Scale BMI 40.5 BP 108/74 Blood Pressure Source Automatic Cuff Blood Pressure Location Right Upper Arm Position Sitting Respiration 18 Pulse 96 Pulse Source Monitor Temp 97.6 F Temp Source Temporal Artery Scan Pulse Oximetry (%) 97 Oxygen Delivery Method Room Air Allergies/Home Meds Allergies & Medications Allergies iron Allergy (Verified 04/27/25 11:14) swelling Medication Reconciliation ondansetron HCl 4 mg tablet 4 mg PO Q8H PRN nausea and vomiting #30 tabs 12/11/24 [Rx Confirmed 04/27/25] vitamin-ferrous fumarate 28 mg iron-folic acid 800 mcg tablet ( Vitamins with Minerals) 1 tab PO QDAY #60 tabs 12/11/24 [Rx Confirmed 04/27/25] blood-glucose meter #1 ea 01/01/25 [Rx Confirmed 04/27/25] metformin 500 mg tablet 500 mg PO QDAY 90 days #90 tabs 03/28/25 [Rx Confirmed 04/27/25] blood sugar diagnostic (Blood Glucose Test strips) #100 ea 04/11/25 [Rx Confirmed 04/27/25] lancets 21 gauge #100 ea 04/11/25 [Rx Confirmed 04/27/25] Immunizations Immunizations Flu Vaccine in the Last 12 Months: No Flu Vaccine Exclusion Criteria: No Exclusion Criteria Care OB Visit Log OB Flowsheet Initial Weight: Not Recorded Date -?-?-?-?-?-?-?-?-?-?-?-?- EGA Weight BP Alb Glu CTX Pres Fundal ht FHR Mov Dilation Station Effacement Hx Notes Visit Note 12/11/24 -?-?-?-?-?-?-?-?-?-?-?-?- 12w 1d 90.265 kg 119/79 absent unknown 12 145 absent 24-year-old 3 para 2 here for OBI. Patient's last period September 17, 2024. This gives a due date June 2025. Patient is happy about the . Her first 2 pregnancies were normal births but she had diabetes with her last . Diet only. Denies bleeding. Denies bleeding leaking. Denies any contractions. Patient does complain of nausea and vomiting Zofran 0.4 every 8 hours I gave prescription 60. Discussed comfort measures for nausea and vomiting. Continue vitamins. I ordered an ultrasound here at [facility]. Patient is having trouble with transportation and wants to go there. OB panel and NIPT and 1 hour GTT for tomorrow at the lab and return in 4 weeks OB check 01/08/25 -?-?-?-?-?-?-?-?-?-?-?-?- 16w 1d 90.832 kg 121/83 absent unknown 15 140 active Reports slight movement. Denies cramps. Denies bleeding. Denies leaking. Patient did not greens picker her glucometer and equipment yet. Previous GDM last . Patient agrees to go to maternal- medicine appointment in [place]. Advised patient to greens picker her glucometer and supplies from the pharmacy. I discussed blood glu cose monitoring 4 times a day. Discussed GDM diet. Encourage patient to walk 40 minutes a day. And I asked patient to follow-up with our educator. Will schedule patient at Dr. Vallejo for anatomy scan. Return in 4 weeks OB check Advised patient to greens picker h er glucometer and supplies from the pharmacy. I discussed blood glucose monitoring 4 times a day. Discussed GDM diet. Encourage patient to walk 40 minutes a day. And I asked patient to follow-up with our educator. Will schedule patient at Dr. Vallejo for anatomy scan. Return in 4 weeks OB check. AFP 02/28/25 -?--?-?-?-?-?-?-?-?-?-?-?- 23w 3d 88.621 kg 110/71 absent unknown 23 145 active Reports good movement. Denies leaking, bleeding, contractions. Patient has a follow-up MFM April 10. Sugars for her fasting before breakfast were 90% above goal. After breakfast lunch and dinner. Patient had poor compliance as well about 80% were at goal. Schedule with O B for medical management of GDM. I discussed with patient the need to walk 40 minutes a day and 10 minutes after each meal. And I reviewed diet and compliance with patient as well return in 2 weeks OB. Keep follow-up appointment April 10 03/28/25 -?-?-?-?-?-?-?-?-?-?-?-?- 27w 3d 89.074 kg 105/70 absent unknown 27 155 active - She has been checking her blood sugar levels at home with some initial difficulty obtaining testing supplies from the pharmacy. - Her glucose numbers were initially marcelo vated when she started monitoring but have been improving and trending toward normal levels. - She reports making some dietary modifi cations, eating less than before. - Notes that her glucose numbers can b e variable, sometimes going up and down unpredictably. - She has experienced some glucose readi ngs over 150 mg/dL which she acknowledges are elevated. - Her morning glucose readings and post- meal readings have been monitored with mixed results. - She reports adherence to glucose monit oring though notes some variability in her checking routine. - Start me tformin, one tablet once daily with breakfast for glucose control - Continue glucose monitoring with targe t goals: fasting glucose <95 mg/dL, post-prandial glucose <130 mg/dL, avoid readings >150 mg/dL - hospice clinical supervisor testing supplies from pharmacy - Follow up in 2 weeks 04/11/25 -?-?-?-?-?-?-?-?-?-?-?-?- 29w 3d 88.621 kg 104/69 absent unknown 28 145 active - She was started on metformin at her last appointment and is here for review of glucose control. - Patient reports checking her blood sug ars as instructed. - Fasting glucose levels are all below 95 mg/dL - Post-meal glucose readings include: 140, 118, 105, 126, 119, 118 mg/dL - She confirms adherence to metformin th erapy since initiation. - Patient inquired about prepper re commendations as she does not currently have a primary care provider. - Continue metformin until delivery - Continue glucose monitoring with curre nt regimen - Begin weekly monitoring at [facility] starting next week due to diabetes - Pharmacy follow-up needed to obtain gl ucose test strips (one-year supply ordered) - Return visit scheduled in 2 weeks - Ultrasound room appointment scheduled 04/27/25 -?-?-?-?-?-?-?-?-?-?-?-?- 31w 5d 87.6 kg 108/74 absent unknown 32 155 active - She reports checking her blood sugars as directed and brought her glucose monitoring numbers to the visit. - Patient states the baby is active. - She is adhering to her glucose monitor ing regimen. - Patient reports receiving a call from the hospital regarding monitoring appointments but had not yet scheduled the additional monitoring visit at the time of this appointment. - Cont inue current glucose monitoring regimen - Patient to receive glucose monitoring supplies (needles and glucose plug) - Weekly monitoring at [facility] due to gestational diabetes - Follow-up appointment in 2 weeks - Patient to await call from hospital to schedule weekly monitoring appointments HERNANDO Calculator Estimated Delivery Date Method Current WG Current Estimate 06/24/25 LMP (Certain) 31w 5d Other Estimates 06/26/25 Ultrasound #1 31w 3d 06/24/25 Ultrasound #2 31w 5d 06/24/25 Manual 31w 5d Final HERNANDO: . EFW:20% on 02/20 Notes Visit Date: 01/08/25 Last Updated by: Eleonora Corea CNM 1 hr gtt: 225, O+,abs-, rpr::nr, rub imm, hbsag-,HIV-,HC-, GC/CT-, NIPT-,, SMA/CF- GDM Visit Date: 12/11/24 Last Updated by: Eleonora Corea CNM 24 yo . lmp 09/17/24. EDC 06/24/25 Office Procedures OBC Clinic LOC & Office Proc's Nursing/Assessment Patient Status: Established Patient OB Clinic Nursing Assessment: Medication Reconciliation, Update PMH in EMR and Vital Signs OB Clinic Coordination of Care: Complex Care and Chronic Disease 1-5, Education Complex Pt/Fam, Consent,records obtained, informed consent, Lab and Imaging orders, Results/Orders obtained and Staff clarify orders Special Needs: Heart tones Established Patient Charge Established Patient Point Assignment: 140 Established Patient Point Charge: EP Level 4 (120-155) Assessment & Plan Diagnosis / Problem List (1) Gestational diabetes mellitus treated with oral hypoglycemic therapy: Status: Acute (2) Supervision of high risk , unspecified, third trimester: Status: Acute Plan Problem List - Gestational diabetes mellitus - at 31 weeks and 5 days gestation Assessment 31-week 5-day patient with gestational diabetes mellitus presenting for routine care. Blood glucose monitoring numbers are within acceptable range with good glycemic control currently maintained. heart rate is 154 bpm, which is within normal limits. activity is reported as normal by the patient. Plan - Continue current glucose monitoring regimen - Patient to receive glucose monitoring supplies (needles and glucose plug) - Weekly monitoring at [facility] due to gestational diabetes - Follow-up appointment in 2 weeks - Patient to await call from hospital to schedule weekly monitoring appointments 1. Progress Reviewed gestational age (31 weeks 5 days), growth, and heart rate (154 bpm, normal). Planned frequent visits (every 2 weeks until 36 weeks, then weekly). 2. Instructed patient to monitor movements and report decreases immediately. 3. Testing Counseled on routine third-trimester labs per guidelines. Discussed potential need for ultrasound or monitoring based on risk factors (weekly monitoring at hospital due to gestational diabetes). 4. Preeclampsia Precaution Educated on preeclampsia signs: severe headache, vision changes, right upper quadrant pain, sudden swelling. Advised urgent reporting of symptoms and discussed blood pressure monitoring if high risk. 5. Labor Precautions Reviewed labor signs: regular contractions, pelvic pressure, back pain, bleeding, or fluid leakage. Instructed to seek immediate care for these symptoms. 6. Lifestyle and Delivery Preparation Reinforced vitamins, nutrition, and safe activity. Discussed plan, pain management, and . Advised on labor preparation (e.g., hospital bag) and expectations. 7. Psychosocial Support Assessed emotional well-being and offered resources for mental health or parenting support.
== END 2025-04-27 11:41 | disposition home or self-care (01) ==
PROVIDERS: Supervising Provider Obstetrics & Gynecology; Visit Provider Obstetrics & Gynecology
DX: O09.893 Supervision of other high risk pregnancies, third trimester (principal); O24.415 Gestational diabetes mellitus in pregnancy, controlled by oral hypoglycemic drugs; Z3A.31 31 weeks gestation of pregnancy
CPT/HCPCS: 99214; G0463

== ENCOUNTER 2025-05-15 13:03 | Outpatient (AMB) | payer MEDICAID, SELFPAY ==
[2025-05-15 13:13] VITALS: BP 116/76; PULSE 88; RESP 16; TEMP 36.4; O2SAT 98; BMI 41.3
--- NOTE | 2025-05-15 13:13 | OBCLNT_ITS ---
Vital Signs 05/15/25 13:13 Height 1.47 m Height Method Stated Weight 89.414 kg Weight Measurement Method Standing Scale BMI 41.3 BP 116/76 Blood Pressure Source Automatic Cuff Blood Pressure Location Left Upper Arm Position Sitting Respiration 16 Pulse 88 Pulse Source Monitor Temp 97.6 F Temp Source Oral Pulse Oximetry (%) 98 Oxygen Delivery Method Room Air Allergies/Home Meds Allergies & Medications Allergies iron Allergy (Verified 05/15/25 13:13) swelling Medication Reconciliation ondansetron HCl 4 mg tablet 4 mg PO Q8H PRN nausea and vomiting #30 tabs 12/11/24 [Rx Confirmed 05/15/25] vitamin-ferrous fumarate 28 mg iron-folic acid 800 mcg tablet ( Vitamins with Minerals) 1 tab PO QDAY #60 tabs 12/11/24 [Rx Confirmed 05/15/25] blood-glucose meter #1 ea 01/01/25 [Rx Confirmed 05/15/25] metformin 500 mg tablet 500 mg PO QDAY 90 days #90 tabs 03/28/25 [Rx Confirmed 05/15/25] blood sugar diagnostic (Blood Glucose Test strips) #100 ea 04/11/25 [Rx Confirmed 05/15/25] lancets 21 gauge #100 ea 04/11/25 [Rx Confirmed 05/15/25] Immunizations Immunizations Flu Vaccine in the Last 12 Months: No Flu Vaccine Exclusion Criteria: Refused by Patient Care OB Visit Log OB Flowsheet Initial Weight: Not Recorded Date -?-?-?-?-?-?-?-?-?-?-?-?- EGA Weight BP Alb Glu CTX Pres Fundal ht FHR Mov Dilation Station Effacement Hx Notes Visit Note 12/11/24 -?-?-?-?-?-?-?-?-?-?-?-?- 12w 1d 90.265 kg 119/79 absent unknown 12 145 absent 24-year-old 3 para 2 here for OBI. Patient's last period September 17, 2024. This gives a due date June 2025. Patient is happy about the . Her first 2 pregnancies were normal births but she had diabetes with her last . Diet only. Denies bleeding. Denies bleeding leaking. Denies any contractions. Patient does complain of nausea and vomiting Zofran 0.4 every 8 hours I gave prescription 60. Discussed comfort measures for nausea and vomiting. Continue vitamins. I ordered an ultrasound here at [facility]. Patient is having trouble with transportation and wants to go there. OB panel and NIPT and 1 hour GTT for tomorrow at the lab and return in 4 weeks OB check 01/08/25 -?-?-?-?-?-?-?-?-?-?-?-?- 16w 1d 90.832 kg 121/83 absent unknown 15 140 active Reports slight movement. Denies cramps. Denies bleeding. Denies leaking. Patient did not pickle solution maker her glucometer and equipment yet. Previous GDM last . Patient agrees to go to maternal- medicine appointment in [place]. Advised patient to pickle solution maker her glucometer and supplies from the pharmacy. I discussed blood glucose monitoring 4 times a day. Discussed GDM diet. Encourage patient to walk 40 minutes a day. And I asked patient to follow-up with our educator. Will schedule patient at Dr. Vallejo for anatomy scan. Return in 4 weeks OB check Advised patient to pickle solution maker h er glucometer and supplies from the pharmacy. I discussed blood glucose monitoring 4 times a day. Discussed GDM diet. Encourage patient to walk 40 minutes a day. And I asked patient to follow-up with our educator. Will schedule patient at Dr. Vallejo for anatomy scan. Return in 4 weeks OB check. AFP 02/28/25 -?-?-?-?-?-?-?-?-?-?-?-?- 23w 3d 88.621 kg 110/71 absent unknown 23 145 active Reports good movement. Denies leaking, bleeding, contractions. Patient has a follow-up MFM April 10. Sugars for her fasting before breakfast were 90% above goal. After breakfast lunch and dinner. Patient had poor compliance as well about 80% were at goal. Schedule with O B for medical management of GDM. I discussed with patient the need to walk 40 minutes a day and 10 minutes after each meal. And I reviewed diet and compliance with patient as well return in 2 weeks OB. Keep follow-up appointment April 10 03/16/25 -?-?-?-?-?-?-?-?-?-?-?-?- 25w 5d 87.146 kg 114/76 absent unknown 26 150 active - She has A1 diet- controlled diabetes and reports difficulty obtaining her prescription for blood glucose monitoring supplies. - States she went to the pharmacy but they indicated no prescription was available. - Has not been checking her blood suga rs due to lack of supplies. - Patient reports movement. - She was previously seeing a different provider. - Send new prescription for blood glucose monitoring supplies to [facility] pharmacy today - Patient to return with blood sugar log s - Follow up appointment in 2 weeks - Verify prescription availability at [facility] 03/28/25 -?-?-?-?-?-?-?-?--?-?-?-?- 27w 3d 89.074 kg 105/70 absent unknown 27 155 active - She has been checking her blood sugar levels at home with some initial difficulty obtaining testing supplies from the pharmacy. - Her glucose numbers were initially marcelo vated when she started monitoring but have been improving and trending toward normal levels. - She reports making some dietary modifi cations, eating less than before. - Notes that her glucose numbers can b e variable, sometimes going up and down unpredictably. - She has experienced some glucose readi ngs over 150 mg/dL which she acknowledges are elevated. - Her morning glucose readings and post- meal readings have been monitored with mixed results. - She reports adherence to glucose monit oring though notes some variability in her checking routine. - Start me tformin, one tablet once daily with breakfast for glucose control - Continue glucose monitoring with targe t goals: fasting glucose <95 mg/dL, pos t-prandial glucose <130 mg/dL, avoid readings >150 mg/dL - supervisor diagnostic testing supplies from pharmacy - Follow up in 2 weeks 04/11/25 -?-?-?-?-?-?-?-?-?-?-?-?- 29w 3d 88.621 kg 104/69 absent unknown 28 145 active - She was started on metformin at her last appointment and is here for review of glucose control. - Patient reports checking her blood sug ars as instructed. - Fasting glucose levels are all below 95 mg/dL - Post-meal glucose readings include: 140, 118, 105, 126, 119, 118 mg/dL - She confirms adherence to metformin th erapy since initiation. - Patient inquired about allergist/md re commendations as she does not currently have a primary care provider. - Continue metformin until delivery - Continue glucose monitoring with curre nt regimen - Begin weekly monitoring at [facility] starting next week due to diabetes - Pharmacy follow-up needed to obtain gl ucose test strips (one-year supply ordered) - Return visit scheduled in 2 weeks - Ultrasound room appointment scheduled 04/27/25 -?-?-?-?-?-?-?-?-?-?-?-?- 31w 5d 87.6 kg 108/74 absent unknown 32 155 active - She reports checking her blood sugars as directed and brought her glucose monitoring numbers to the visit. - Patient states the baby is active. - She is adhering to her glucose monitor ing regimen. - Patient reports receiving a call from the hospital regarding monitoring appointments but had not yet scheduled the additional monitoring visit at the time of this appointment. - Cont inue current glucose monitoring regimen - Patient to receive glucose monitoring supplies (needles and glucose plug) - Weekly monitoring at [facility] due to gestational diabetes - Follow-up appointment in 2 weeks - Patient to await call from hospital to schedule weekly monitoring appointments 05/15/25 -?-?-?-?-?-?-?-?-?-?-?-?- 34w 2d 89.414 kg 116/76 absent unknown 35 148 active - She reports well- controlled gestational diabetes mellitus (GDM) on metformin therapy. - Patient states the baby is active with no contractions. - She is attending hospital appointments for monitoring as recommended. - Blood sugar numbers are described as p erfect and she is maintaining good glycemic control. - Continue cur rent metformin therapy for well-controlled gestational diabetes - Follow-up appointment in 2 weeks - Transition to weekly visits after the 2-week follow-up - Perform Group B Streptococcus (GBS) cu lture swab at next appointment - Continue weekly monitoring due t o gestational diabetes HERNANDO Calculator Estimated Delivery Date Method Current WG Current Estimate 06/24/25 LMP (Certain) 34w 2d Other Estimates 06/26/25 Ultrasound #1 34w 0d 06/24/25 Ultrasound #2 34w 2d 06/24/25 Manual 34w 2d Final HERNANDO: . EFW:20% on 02/20 Notes Visit Date: 01/08/25 Last Updated by: Eleonora Corea CNM 1 hr gtt: 225, O+,abs-, rpr::nr, rub imm, hbsag-,HIV-,HC-, GC/CT-, NIPT-,, SMA/CF- GDM Visit Date: 12/11/24 Last Updated by: Eleonora Corea, CHASE 24 yo . lmp 09/17/24. EDC 06/24/25 Office Procedures OBC Clinic LOC & Office Proc's Nursing/Assessment Patient Status: Established Patient OB Clinic Nursing Assessment: Medication Reconciliation, Update PMH in EMR and Vital Signs OB Clinic Coordination of Care: Complex Care and Chronic Disease 1-5, Consent,records obtained, informed consent, Education Simp Pt/Fam, 1 Ins Authorization, Lab and Imaging orders, Results/Orders obtained and Staff clarify orders Special Needs: Heart tones Established Patient Charge Established Patient Point Assignment: 150 Established Patient Point Charge: EP Level 4 (120-155) Assessment & Plan Diagnosis / Problem List (1) Gestational diabetes mellitus in , diet controlled: Status: Acute (2) Supervision of high risk , unspecified, third trimester: Status: Acute (3) Gestational diabetes mellitus treated with oral hypoglycemic therapy: Status: Acute Plan Problem List - Gestational diabetes mellitus - at 34 weeks and 2 days gestation Assessment 34-week 2-day patient, 3 para 2, with well-controlled gestational diabetes mellitus on metformin therapy. Patient reports normal activity with no contractions. Blood glucose levels are well-maintained with documented normal values. heart rate is 148 beats per minute, which is within normal limits. Plan - Continue current metformin therapy for well-controlled gestational diabetes - Follow-up appointment in 2 weeks - Transition to weekly visits after the 2-week follow-up - Perform Group B Streptococcus (GBS) culture swab at next appointment - Continue weekly monitoring due to gestational diabetes 1. Progress Reviewed gestational age (34 weeks 2 days), growth, and heart rate (148 bpm, normal). Planned frequent visits (every 2 weeks until 36 weeks, then weekly). 2. Instructed patient to monitor movements and report decreases immediately. 3. Testing Counseled on routine third-trimester labs per guidelines including GBS culture at next visit. Discussed potential need for ultrasound or monitoring based on risk factors. 4. Preeclampsia Precaution Educated on preeclampsia signs: severe headache, vision changes, right upper quadrant pain, sudden swelling. Advised urgent reporting of symptoms and discussed blood pressure monitoring if high risk. 5. Labor Precautions Reviewed labor signs: regular contractions, pelvic pressure, back pain, bleeding, or fluid leakage. Instructed to seek immediate care for these symptoms. 6. Lifestyle and Delivery Preparation Reinforced vitamins, nutrition, and safe activity. Discussed plan, pain management, and . Advised on labor preparation (e.g., hospital bag) and expectations. 7. Psychosocial Support Assessed emotional well-being and offered resources for mental health or parenting support.
== END 2025-05-15 13:35 | disposition home or self-care (01) ==
LOC: HODSOBC 13:03
PROVIDERS: Supervising Provider Obstetrics & Gynecology; Visit Provider Obstetrics & Gynecology
DX: O09.893 Supervision of other high risk pregnancies, third trimester (principal); O24.415 Gestational diabetes mellitus in pregnancy, controlled by oral hypoglycemic drugs; Z3A.34 34 weeks gestation of pregnancy; Z88.8 Allergy status to other drugs, medicaments and biological substances; Z28.21 Immunization not carried out because of patient refusal
CPT/HCPCS: 99214; G0463